=== PATIENT | male | born 1960 | race Asian ===

== ENCOUNTER 2024-04-18 07:29 | Day surgery (SDC) | payer MEDICAID, OTHER ==
[~2024-04-18] VITALS: Ht 172.7 cm; Wt 74.8 kg
[2024-04-18] MEDS ORDERED: MIDAZOLAM HCL 5 MG/5 ML VIAL ONE (07:59)
[2024-04-18] MEDS ORDERED: MEPERIDINE 100 MG INJ. 100 MG/ML VIAL ONE (07:59)
[2024-04-30 13:35] VITALS: BP_SYST 143; PULSE 85; RESP 18; TEMP 97; O2SAT 100
== END 2024-04-18 11:58 | disposition home or self-care (01) ==
LOC: SDS 07:29 → SMU 07:39 → SDS 11:58 → EDBD 12:00
PROVIDERS: ATTEND Internal Medicine
DX: Z12.11 Encounter for screening for malignant neoplasm of colon (principal); K64.8 Other hemorrhoids; I11.0 Hypertensive heart disease with heart failure; I50.9 Heart failure, unspecified; I25.10 Atherosclerotic heart disease of native coronary artery without angina pectoris; Z88.0 Allergy status to penicillin; Z95.818 Presence of other cardiac implants and grafts; Z98.61 Coronary angioplasty status; Z79.899 Other long term (current) drug therapy
CPT/HCPCS: 45378; 99152; G0378; J2250; J2175